=== PATIENT | male | born 2000 | race Caucasian/White ===

== ENCOUNTER 2020-10-23 14:47 | Emergency (ER) | payer BC | END 2020-10-23 16:30 | disposition home or self-care (01) | LOC: ER1 14:47 | DX: R19.7 Diarrhea, unspecified (principal); R10.9 Unspecified abdominal pain | CPT/HCPCS: 99283 ==

== ENCOUNTER 2021-06-30 07:26 | Emergency (ER) | payer BC ==
[2021-06-30] MEDS ORDERED: CYCLOBENZAPRINE10 MG PO (10:39)
[2021-06-30] MEDS ORDERED: IBUPROFEN600 MG PO (10:39)
== END 2021-06-30 10:50 | disposition home or self-care (01) ==
LOC: ER1 07:26
DX: S39.82XA Other specified injuries of lower back, initial encounter (principal); X50.0XXA Overexertion from strenuous movement or load, initial encounter
CPT/HCPCS: 72131; 96372; 99283; J1100; J1885

== ENCOUNTER 2021-08-10 00:37 | Emergency (ER) | payer OTHER ==
[~2021-08-10 00:37] MED LIST: CYCLOBENZAPRINE10 MG PO; IBUPROFEN600 MG PO
[2021-08-10] MEDS ORDERED: IBUPROFEN600 MG PO (02:19)
[2021-08-10] MEDS ORDERED: NORFLEX 100 MG100 MG PO (02:19)
== END 2021-08-10 02:25 | disposition home or self-care (01) ==
LOC: ER1 00:37
DX: S00.03XA Contusion of scalp, initial encounter (principal); V49.50XA Passenger injured in collision with unspecified motor vehicles in traffic accident, initial encounter; Y92.410 Unspecified street and highway as the place of occurrence of the external cause
CPT/HCPCS: 70450; 71045; 72125; 73564; 99284